=== PATIENT | female | born 1980 | race Caucasian/White ===

== ENCOUNTER 2016-06-18 01:14 | Emergency (ER) | payer OTHER ==
--- NOTE | 2016-06-18 03:21 | ED NURSING NOTES ---
Clinical Report - Nurses [facility] [address] [place] [address] 06/18/2016 1:18 Patient: STEPHANIA TURNER TRIAGE Triage time 0133. Acuity: LEVEL 3. Chief Complaint: INJURY TO LEFT ELBOW. MIKEL COMA SCORE: Mikel Coma Scale: 15- eyes open spontaneously (4); best verbal response- oriented x 4 (5); best motor response- obeys commands (6). --01:40 Jen Rowell R.N. 01:33 06/18/16. BP: 146/98. HR: 97. RR: 20 (unlabored). O2 saturation: 100% on room air. Temp: 98.6 F (temporal). Pain level now: 01/19. --01:40 Jen Rowell R.N. Weight: 58.9 kg stated. Height/Length: 63 inches Per Patient. BMI: 23. --01:32 Jen Rowell R.N. Medications None. --01:38 Jen Rowell R.N. Allergies Penicillins. --01:38 Jen Rowell R.N. Erythromycin. --01:39 Jen Rowell R.N. Ceclor. --01:39 Jen Rowell R.N. Medication/allergy information source: the patient. --01:40 Jen Rowell R.N. History Arrived by private vehicle. Historian: patient. Accompanied by family. Primary physician (none). 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 pt states customer stuck his foot out when she tripped. pt c/o numbness to right 4th and 5th digits. fall occurred around 2330. bruising and swelling noted to right elbow. pt also c/o bilateral knee pain.). Occurred at work. Mechanism of injury: fell. 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 PAST MEDICAL HX: Uses an intrauterine device. SOCIAL HX: Light tobacco smoker (cigarette)- less than 1/2 a pack per day. Occasional alcohol use. No drug use. ABUSE ASSESSMENT: No report of abuse. FALL RISK ASSESSMENT: Fall risk assessment completed. No fall risk identified. NUTRITIONAL RISK ASSESSMENT: The nutritional risk assessment revealed no deficiencies. FUNCTIONAL ASSESSMENT: Functional assessment: no impairments noted. LEARNING NEEDS ASSESSMENT: The learning needs assessment revealed no barriers. SKIN INTEGRITY ASSESSMENT: Skin integrity risk assessment completed. No skin integrity risk identified. --01:40 Jen Rowell R.N. PROBLEMS: no known problems. ADDITIONAL SURGERIES: Adenoidectomy. Tonsillectomy. --01:39 Jen Rowell R.N. Interventions ID band on patient. To waiting room. --01:40 Jen Rowell R.N. PHYSICAL ASSESSMENT Ambulatory to room. GENERAL / NEURO / PSYCH: Oriented X 4. Alert. Appears in pain. EXTREMITIES: Right elbow: swelling and ecchymosis of the area of the posterior elbow. Limited ROM secondary to pain. No injury to the medial elbow. SKIN: Skin intact. Skin is warm and dry. --02:50 Jen Rowell R.N. NURSING PROGRESS NOTES 03:38 06/18/2016 Ibuprofen PO Tablets 600 mg given. Allergies verified and confirmed 5 rights. --03:38 Jen Rowell R.N. 03:39 06/18/2016 Hydrocodone-APAP (Hydrocodone-Acetaminophen) PO 5/325 mg Tablets 1 tab given. Allergies verified, confirmed 5 rights and sedative warning given to the patient. --03:39 Jen Rowell R.N. Sling applied to right arm by pharmacy order entry technician; (0350). --03:55 Nisa Talbert 03:56 06/18/2016 TDAP IM 0.5 mL given. (Lot#: [id number], expiration date: 03/09/2018, Recycling Manager: sanofi pasteur). Given in the left deltoid. Allergies verified and confirmed 5 rights. Vaccine information statement provided to the patient. --03:56 eJn Rowell R.N. DISPOSITION / DISCHARGE Departure time: 355. Condition at departure: unchanged. No learning barriers present. Discharge instructions provided and reviewed with the patient. Reviewed medication(s). Prescription(s) given to the patient (Hydrocodone/APAP, Ibuprofen). Patient verbalized understanding. Written instructions provided in Lithuanian. The patient was discharged by the physician. She was discharged home and accompanied by manager law. She left the Emergency Department ambulatory and via private vehicle. Cut In Station Operator driving. Medication list reviewed and validated with the patient. --04:02 Jen Rowell R.N. 03:56 06/18/16. BP: 131/78. HR: 94. RR: 20 (unlabored). O2 saturation: 98% on room air. Temp: deferred. Pain level now: 12/19. --04:02 Jen Rowell R.N. Locked/Released at 06/18/2016 4:02 by Jen Rowell R.N.
--- NOTE | 2016-06-18 03:21 | ED CLINICAL REPORT ---
Clinical Report - Physicians/Mid Levels [facility] [address] [place] [address] 06/18/2016 1:18 Patient: STEPHANIA TURNER Time Seen: 03:11 Jun 18 2016. Arrived- By private vehicle. Historian- patient. CPT: ER phys charges level 3 (#912167). HISTORY OF PRESENT ILLNESS Chief Complaint: Injury to the left elbow. The injury happened today. Fell. Occurred at work. Patient is experiencing moderate pain. Patient also notes injury to the right lower extremity (knee) and left lower extremity (knee). REVIEW OF SYSTEMS The patient has had swelling. She has had numbness of the right ring finger (mild) and right little finger (mild). No tingling, weakness, suspected foreign body or skin laceration. All systems otherwise negative, except as recorded above. PAST HISTORY See nurses notes. The patient's dominant hand is the right. Problems: no known problems. Medications: None. Allergies: Ceclor. Erythromycin. Penicillins. SOCIAL HISTORY Light tobacco smoker (cigarette)- less than 1/2 a pack per day. Occasional alcohol use. ADDITIONAL NOTES The nursing notes have been reviewed. PHYSICAL EXAM Vital Signs: 06/18/2016 01:33 BP: 146/98. HR: 97. RR: 20. O2 saturation: 100%. Temp: 98.6 F. Pain level now: 8/10. Appearance: Alert. Patient in mild distress. Head: Head atraumatic. Eyes: Eyes normal inspection. ENT: Pharynx normal. Neck: Normal inspection. Neck supple. C-spine non-tender. CVS: Normal heart rate and rhythm. Heart sounds normal. Pulses normal. Respiratory: No respiratory distress. Breath sounds normal. Chest nontender. Abdomen: No visible injury. Soft and nontender. No mass. Back: Normal inspection. No tenderness. ROM normal. Skin: Skin intact. Skin warm. Normal skin color. Extremities: Right elbow: moderate tenderness and swelling, small abrasion and medium sized ecchymosis located in the area of the olecranon. Limited ROM secondary to pain. Neurovascular intact distally. No deformity. No joint effusion. ( Small abrasions with edema both anterior knees. No bone tendrness. Pt ambulatory.). Neuro, Vascular and Tendons: Vascular status intact. Sensation intact. Motor intact. Neuro: Oriented X 3. No motor deficit. No sensory deficit. Reflexes normal. LABS, X-RAYS, AND EKG X-Rays: Left elbow negative. PROGRESS AND PROCEDURES Course of Care: Motrin 600 mg po Vicodin 1 po Tdap given. Patient/family counseled. Disposition: Discharged. Condition: stable. CLINICAL IMPRESSION Contusion to the right elbow and right knee and left knee. Fall on same level by tripping. Single superficial abrasion to the left knee. Right ulnar nerve contusion with paresthesias over the right 4th and 5th fingers.l. INSTRUCTIONS Apply ice for 15-20 minutes three times a day for one days. Wear simple sling until better. Limit use of your right hand until better. Return to work tomorrow when better (wear sling until released.). Warnings: SEDATIVE MEDICATION: You were given sedative medication during your visit. Do not drive or operate dangerous machinery. GENERAL WARNINGS: Return or contact your physician immediately if your condition worsens or changes unexpectedly, if not improving as expected, or if other problems arise. Prescription Medications: Hydrocodone/APAP 5mg/325mg: take 1 to 2 orally every 6 hours as needed for pain. Dispense fifteen (15). No refills. Ibuprofen 600mg tablets: take 1 tablet orally every 8 hours as needed for pain. Dispense thirty (30). No refills. Follow-up: Follow up with your doctor in one week. Call for an appointment. Understanding of the discharge instructions verbalized by patient. (Electronically signed by Tan Urbano MD 06/19/2016 22:27)
--- NOTE | 2016-06-18 03:21 | ED CLINICAL REPORT ---
Clinical Report - Physicians/Mid Levels [facility] [address] [place] [address] 06/18/2016 1:18 Patient: STEPHANIA UTRNER Time Seen: 03:11 Jun 18 2016. Arrived- By private vehicle. Historian- patient. CPT: ER phys charges level 3 (#[id number]). HISTORY OF PRESENT ILLNESS Chief Complaint: Injury to the left elbow. The injury happened today. Fell. Occurred at work. Patient is experiencing moderate pain. Patient also notes injury to the right lower extremity (knee) and left lower extremity (knee). REVIEW OF SYSTEMS The patient has had swelling. She has had numbness of the right ring finger (mild) and right little finger (mild). No tingling, weakness, suspected foreign body or skin laceration. All systems otherwise negative, except as recorded above. PAST HISTORY See nurses notes. The patient's dominant hand is the right. Problems: no known problems. Medications: None. Allergies: Ceclor. Erythromycin. Penicillins. SOCIAL HISTORY Light tobacco smoker (cigarette)- less than 1/2 a pack per day. Occasional alcohol use. ADDITIONAL NOTES The nursing notes have been reviewed. PHYSICAL EXAM Vital Signs: 06/18/2016 01:33 BP: 146/98. HR: 97. RR: 20. O2 saturation: 100%. Temp: 98.6 F. Pain level now: 8/10. Appearance: Alert. Patient in mild distress. Head: Head atraumatic. Eyes: Eyes normal inspection. ENT: Pharynx normal. Neck: Normal inspection. Neck supple. C-spine non-tender. CVS: Normal heart rate and rhythm. Heart sounds normal. Pulses normal. Respiratory: No respiratory distress. Breath sounds normal. Chest nontender. Abdomen: No visible injury. Soft and nontender. No mass. Back: Normal inspection. No tenderness. ROM normal. Skin: Skin intact. Skin warm. Normal skin color. Extremities: Right elbow: moderate tenderness and swelling, small abrasion and medium sized ecchymosis located in the area of the olecranon. Limited ROM secondary to pain. Neurovascular intact distally. No deformity. No joint effusion. ( Small abrasions with edema both anterior knees. No bone tendrness. Pt ambulatory.). Neuro, Vascular and Tendons: Vascular status intact. Sensation intact. Motor intact. Neuro: Oriented X 3. No motor deficit. No sensory deficit. Reflexes normal. LABS, X-RAYS, AND EKG X-Rays: Left elbow negative. PROGRESS AND PROCEDURES Course of Care: Motrin 600 mg po Vicodin 1 po Tdap given. Patient/family counseled. Disposition: Discharged. Condition: stable. CLINICAL IMPRESSION Contusion to the right elbow and right knee and left knee. Fall on same level by tripping. Single superficial abrasion to the left knee. Right ulnar nerve contusion with paresthesias over the right 4th and 5th fingers.l. INSTRUCTIONS Apply ice for 15-20 minutes three times a day for one days. Wear simple sling until better. Limit use of your right hand until better. Return to work tomorrow when better (wear sling until released.). Warnings: SEDATIVE MEDICATION: You were given sedative medication during your visit. Do not drive or operate dangerous machinery. GENERAL WARNINGS: Return or contact your physician immediately if your condition worsens or changes unexpectedly, if not improving as expected, or if other problems arise. Prescription Medications: Hydrocodone/APAP 5mg/325mg: take 1 to 2 orally every 6 hours as needed for pain. Dispense fifteen (15). No refills. Ibuprofen 600mg tablets: take 1 tablet orally every 8 hours as needed for pain. Dispense thirty (30). No refills. Follow-up: Follow up with your doctor in one week. Call for an appointment. Understanding of the discharge instructions verbalized by patient. (Electronically signed by Tan Urbano MD 06/19/2016 22:27)
--- NOTE | 2016-06-18 03:21 | ED NURSING NOTES ---
Clinical Report - Nurses [facility] [address] [place] [address] 06/18/2016 1:18 Patient: STEPHANIA TURNER TRIAGE Triage time 0133. Acuity: LEVEL 3. Chief Complaint: INJURY TO LEFT ELBOW. MIKEL COMA SCORE: Mikel Coma Scale: 15- eyes open spontaneously (4); best verbal response- oriented x 4 (5); best motor response- obeys commands (6). --01:40 Jen Rowell R.N. 01:33 06/18/16. BP: 146/98. HR: 97. RR: 20 (unlabored). O2 saturation: 100% on room air. Temp: 98.6 F (temporal). Pain level now: 01/19. --01:40 Jen Rowell R.N. Weight: 58.9 kg stated. Height/Length: 63 inches Per Patient. BMI: 23. --01:32 Jen Rowell R.N. Medications None. --01:38 Jen Rowell R.N. Allergies Penicillins. --01:38 Jen Rowell R.N. Erythromycin. --01:39 Jen Rowell R.N. Ceclor. --01:39 Jen Rowell R.N. Medication/allergy information source: the patient. --01:40 Jen Rowell R.N. History Arrived by private vehicle. Historian: patient. Accompanied by family. Primary physician (none). 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 pt states customer stuck his foot out when she tripped. pt c/o numbness to right 4th and 5th digits. fall occurred around 2330. bruising and swelling noted to right elbow. pt also c/o bilateral knee pain.). Occurred at work. Mechanism of injury: fell. 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 PAST MEDICAL HX: Uses an intrauterine device. SOCIAL HX: Light tobacco smoker (cigarette)- less than 1/2 a pack per day. Occasional alcohol use. No drug use. ABUSE ASSESSMENT: No report of abuse. FALL RISK ASSESSMENT: Fall risk assessment completed. No fall risk identified. NUTRITIONAL RISK ASSESSMENT: The nutritional risk assessment revealed no deficiencies. FUNCTIONAL ASSESSMENT: Functional assessment: no impairments noted. LEARNING NEEDS ASSESSMENT: The learning needs assessment revealed no barriers. SKIN INTEGRITY ASSESSMENT: Skin integrity risk assessment completed. No skin integrity risk identified. --01:40 Jen Rowell R.N. PROBLEMS: no known problems. ADDITIONAL SURGERIES: Adenoidectomy. Tonsillectomy. --01:39 Jen Rowell R.N. Interventions ID band on patient. To waiting room. --01:40 Jen Rowell R.N. PHYSICAL ASSESSMENT Ambulatory to room. GENERAL / NEURO / PSYCH: Oriented X 4. Alert. Appears in pain. EXTREMITIES: Right elbow: swelling and ecchymosis of the area of the posterior elbow. Limited ROM secondary to pain. No injury to the medial elbow. SKIN: Skin intact. Skin is warm and dry. --02:50 Jen Rowell R.N. NURSING PROGRESS NOTES 03:38 06/18/2016 Ibuprofen PO Tablets 600 mg given. Allergies verified and confirmed 5 rights. --03:38 Jen Rowell R.N. 03:39 06/18/2016 Hydrocodone-APAP (Hydrocodone-Acetaminophen) PO 5/325 mg Tablets 1 tab given. Allergies verified, confirmed 5 rights and sedative warning given to the patient. --03:39 Jen Rowell R.N. Sling applied to right arm by diesel service technician; (0350). --03:55 Nisa Talbert 03:56 06/18/2016 TDAP IM 0.5 mL given. (Lot#: [id number], expiration date: 03/09/2018, Manager Dialysis: sanofi pasteur). Given in the left deltoid. Allergies verified and confirmed 5 rights. Vaccine information statement provided to the patient. --03:56 Jen Rowell R.N. DISPOSITION / DISCHARGE Departure time: 355. Condition at departure: unchanged. No learning barriers present. Discharge instructions provided and reviewed with the patient. Reviewed medication(s). Prescription(s) given to the patient (Hydrocodone/APAP, Ibuprofen). Patient verbalized understanding. Written instructions provided in Mauritanian. The patient was discharged by the physician. She was discharged home and accompanied by ordnance keeper. She left the Emergency Department ambulatory and via private vehicle. Manager Assurance driving. Medication list reviewed and validated with the patient. --04:02 Jen Rowell R.N. 03:56 06/18/16. BP: 131/78. HR: 94. RR: 20 (unlabored). O2 saturation: 98% on room air. Temp: deferred. Pain level now: 12/19. --04:02 Jen Rowell R.N. Locked/Released at 06/18/2016 4:02 by Jen Rowell R.N.
--- NOTE | 2016-06-18 03:21 | ED ORDER SUMMARY ---
..... Patient: STEPHANIA TURNER OrderSheet [facility] VisitID: [id number] [address] [place] [address] 35y, F Registration Date/Time: 06/18/2016 ORDER SHEET Weight: 58.9 kg (stated) Allergies: Penicillins, Erythromycin, Ceclor GENERAL ORDERS: Elbow 3 or 4V Right Urgent (01:41 06/18/2016 HKone R.N. per protocol) (Ack 1:43 Bonilla LOBO Demurrage Worker) (2:07 Ju) Sling - arm (03:18 06/18/2016 Eden FOUNTAIN) (3:54 Mary) MEDICATION ORDERS: Ibuprofen PO 600 mg (NOW) (03:18 06/18/2016 Eden FOUNTAIN) (Ack 3:30 HKone R.N.) (3:38 HKone R.N.) Hydrocodone-APAP PO 5/325 mg (NOW) (03:18 06/18/2016 Eden FOUNTAIN) (Ack 3:30 HKone R.N.) (3:39 HKone R.N.) Tdap IM 0.5 mL (NOW) (03:48 06/18/2016 Eedn FOUNTAIN) (3:56 HKone R.N.) IV FLUIDS: ORDER SHEET NOTES: [Electronically signed by Jen Rowell R.N. (04:02 06/18/2016)] [Electronically signed by Tan Urbano MD (22:27 06/19/2016)] [Electronically locked/signed by Jen Rowell R.N. (04:02 06/18/2016)]
--- NOTE | 2016-06-18 03:21 | ED ORDER SUMMARY ---
..... Patient: STEPHANIA TURNER OrderSheet [facility] VisitID: [id number] [address] [place] [address] 35y, F Registration Date/Time: 06/18/2016 ORDER SHEET Weight: 58.9 kg (stated) Allergies: Penicillins, Erythromycin, Ceclor GENERAL ORDERS: Elbow 3 or 4V Right Urgent (01:41 06/18/2016 HKone R.N. per protocol) (Ack 1:43 Bonilla LOBO Patron Attendant) (2:07 Ju) Sling - arm (03:18 06/18/2016 Eden FOUNTAIN) (3:54 Mary) MEDICATION ORDERS: Ibuprofen PO 600 mg (NOW) (03:18 06/18/2016 Eden FOUNTAIN) (Ack 3:30 HKone R.N.) (3:38 HKone R.N.) Hydrocodone-APAP PO 5/325 mg (NOW) (03:18 06/18/2016 Eden FOUNTAIN) (Ack 3:30 HKone R.N.) (3:39 HKone R.N.) Tdap IM 0.5 mL (NOW) (03:48 06/18/2016 Eden FOUNTAIN) (3:56 HKone R.N.) IV FLUIDS: ORDER SHEET NOTES: [Electronically signed by Jen Rowell R.N. (04:02 06/18/2016)] [Electronically signed by Tan Urbano MD (22:27 06/19/2016)] [Electronically locked/signed by Jen Rowell R.N. (04:02 06/18/2016)]
--- NOTE | 2016-06-18 09:29 | DIAGNOSTIC IMAGING REPORT ---
PROCEDURE: XR ELBOW 3 OR 4 VIEWS - RIGHT INDICATION: TRAUMA/INJURY, initial encounter TECHNIQUE: [place] COMPARISON: None. FINDINGS: Osseous structures, joint spaces, and soft tissues are normal. No evidence of an effusion. IMPRESSION: 1. Normal right elbow.
--- NOTE | 2016-06-19 22:28 | ED MED RECONCILIATION SUMMARY ---
Patient: STEPHANIA TURNER Medication Reconciliation Report [facility] VisitID: [id number] [address] [address] 35y, F Registration Date/Time: 06/18/2016 Weight: 58.9 kg Height/Length: 63 in. BMI: 23.0 ALLERGIES: Ceclor, Erythromycin, Penicillins The patient's Home Medications are listed below: NONE. The source(s) of the original Home Medication information: patient The following Medications were given to the patient in the Emergency Department: Ibuprofen [PO] PO 600 mg, administered: 06/18/2016 3:38:00 AM Hydrocodone-APAP [PO] PO 1 tab, administered: 06/18/2016 3:39:00 AM TDAP [IM] IM 0.5 mL, administered: 06/18/2016 3:56:00 AM The following Medications were prescribed to the patient: Hydrocodone/APAP 5mg/325mg: take 1 to 2 orally every 6 hours as needed for pain. Dispense fifteen (15). No refills. -- Tan Urbano MD Ibuprofen 600mg tablets: take 1 tablet orally every 8 hours as needed for pain. Dispense thirty (30). No refills. -- Tan Urbano MD
--- NOTE | 2016-06-19 22:28 | ED DISCHARGE INSTRUCTIONS ---
Patient: STEPHANIA TURNER General Instructions [facility] VisitID: [id number] [place] [address] 35y, F Registration Date/Time: 06/18/2016 Contusion to the right elbow and right knee and left knee. Fall on same level by tripping. Single superficial abrasion to the left knee. Right ulnar nerve contusion with paresthesias over the right 4th and 5th fingers.l. INSTRUCTIONS Apply ice for 15-20 minutes three times a day for one days. Wear simple sling until better. Limit use of your right hand until better. Return to work tomorrow when better (wear sling until released.). Warnings: SEDATIVE MEDICATION: You were given sedative medication during your visit. Do not drive or operate dangerous machinery. GENERAL WARNINGS: Return or contact your physician immediately if your condition worsens or changes unexpectedly, if not improving as expected, or if other problems arise. Prescription Medications: Hydrocodone/APAP 5mg/325mg: take 1 to 2 orally every 6 hours as needed for pain. Dispense fifteen (15). No refills. Ibuprofen 600mg tablets: take 1 tablet orally every 8 hours as needed for pain. Dispense thirty (30). No refills. Follow-up: Follow up with your doctor in one week. Call for an appointment. Understanding of the discharge instructions verbalized by patient. ADDITIONAL INFORMATION Mechanical Fall You have had a fall today. It appears that the cause is mechanical. That means that you slipped, tripped or lost your balance. If your fall had been due to fainting or a seizure, further tests would be required. Home Care: Rest today and resume your normal activities when you are feeling back to normal. If you were injured during the fall, follow the advice from your doctor regarding care of your injury. You may use acetaminophen (Tylenol) or ibuprofen (Motrin, Advil) to control pain, unless another pain medicine was prescribed. [NOTE: If you have chronic liver or kidney disease or ever had a stomach ulcer or GI bleeding, talk with your doctor before using these medicines.] Fall Prevention: Was there anything that caused your fall that can be fixed, removed, or replaced? Make your home safe by keeping walkways clear of objects you may trip over. Use non-slip pads under rugs. Do not walk in poorly lit areas. Do not stand on chairs or wobbly ladders. Use caution when reaching overhead or looking upward. This position can cause a loss of balance. Be sure your shoes fit properly, have non-slip bottoms and are in good condition. Be cautious when going up and down curbs, and walking on uneven sidewalks. If your balance is poor, consider using a cane or walker. Stay as active as you can. Balance, flexibility, strength, and endurance all come from exercise. They all play a role in preventing falls. Follow Up with your doctor or as advised by our staff. Get Prompt Medical Attention if any of the following occur: Repeated mechanical falls, or unexplained falls Dizziness, fainting or seizure Severe headache Chest pain or shortness of breath Palpitations (very rapid or very slow or irregular heartbeat) Blood in vomit, stools (black or red color) Weakness of an arm or leg or one side of the face Difficulty with speech or vision Abrasions Abrasions are skin scrapes. Their treatment depends on how large and deep the abrasion is. Home Care: If you were given a bandage, change it once a day. If your bandage sticks to the wound, soak it in warm water until it loosens. Wash the area with soap and water to remove all the cream/ointment. You may do this in a sink, under a tub faucet or shower. Rinse off the soap and pat dry with a clean towel. Reapply cream/ointment according to your doctor's instructions. This will prevent infection and help prevent the bandage from sticking. Cover the wound with a fresh non-stick bandage (Telfa). Repeat steps 1 to 4 daily, or as directed by your doctor. If the bandage becomes wet or dirty, change it as soon as possible. You may use acetaminophen (Tylenol) or ibuprofen (Motrin, Advil) to control pain, unless another pain medicine was prescribed. [ NOTE : If you have chronic liver or kidney disease or ever had a stomach ulcer or GI bleeding, talk with your doctor before using these medicines.] Do not use ibuprofen in children under six months of age. Follow Up with your physician or this facility as directed by our staff. Most skin wounds heal within ten days. However, an infection may occur despite proper treatment. Therefore, look for the early signs of infection listed below. Get Prompt Medical Attention if any of the following occur: Increasing pain in the wound Increasing redness or swelling Pus coming from the wound Fever of 100.4F (38C) or higher, or as directed by your healthcare provider Contusion,Soft Tissue You have a CONTUSION, which is a bruise with swelling and some bleeding under the skin. There are no broken bones. This injury takes a few days to a few weeks to heal. Home Care: 1) Keep the injured part elevated to reduce pain and swelling. This is especially important during the first 48 hours. 2) Make an ice pack (ice cubes in a plastic bag, wrapped in a towel) and apply for 20 minutes every 1-2 hours the first day. Continue this 3-4 times a day until the pain and swelling goes away. 3) You may use acetaminophen (Tylenol) or ibuprofen (Motrin, Advil) to control pain, unless another pain medicine was prescribed. [ NOTE : If you have chronic liver or kidney disease or ever had a stomach ulcer or GI bleeding, talk with your doctor before using these medicines.] Follow Up with your doctor or this facility if you are not improving within the next THREE days. [NOTE: If X-rays were taken, they will be reviewed by a radiologist. You will be notified of any new findings that may affect your care.] Get Prompt Medical Attention if any of the following occur: -- Pain or swelling increases -- Injured arm or leg becomes cold, blue, numb or tingly -- Redness, warmth or drainage from the skin Sling A sling is designed to support your arm in a position of rest. It is used for injuries of the hand, forearm, upper arm, and shoulder. A shoulder that is immobilized too long can become stiff and lose range of motion. Follow up with your doctor as advised and do not use the sling longer than directed. Home Use: Leave the sling in place as long as directed by your doctor. Unless told otherwise, you may remove it when bathing, dressing, and when you go to sleep. The sling is adjustable. If it becomes loose, adjust it so that your forearm is horizontal (level with the ground). Your hand should be level with the elbow. You have been given the following additional information: Fall, Mechanical Abrasion Contusion, Soft Tissue Sling Limit use of your right hand until better. Return to work tomorrow when better (wear sling until released.). (Electronically signed by Tan Urbano MD 06/19/2016 22:27)
--- NOTE | 2016-06-19 22:28 | ED MAR SUMMARY ---
..... Medication Administration Record [facility] [address] [place] [address] Patient: STEPHANIA TURNER Visit ID: [id number] 35y, F Weight: 58.9 kg Height/Length: 63 in BMI: 23 ALLERGIES: Ceclor, Erythromycin, Penicillins Given 03:38 06/18/2016 Jen Rowell RAletaNAleta Medication Administered: IBUPROFEN [PO], Dose: 600 mg Tablets PO. Medication Ordered: Ibuprofen PO 600 mg (NOW). Given 03:39 06/18/2016 Jen Rowell, RAletaN. Medication Administered: HYDROCODONE-APAP [PO] (HYDROCODONE-ACETAMINOPHEN), Dose: 1 tab 5/325 mg Tablets PO. Medication Ordered: Hydrocodone-APAP PO 5/325 mg (NOW). Given 03:56 06/18/2016 Jen Rowell, R.N. Medication Administered: TDAP [IM], Dose: 0.5 mL IM. Medication Ordered: Tdap IM 0.5 mL (NOW).
--- NOTE | 2016-06-19 22:28 | ED MED RECONCILIATION SUMMARY ---
Patient: STEPHANIA TURNER Medication Reconciliation Report [facility] VisitID: [id number] [place] [address] 35y, F Registration Date/Time: 06/18/2016 Weight: 58.9 kg Height/Length: 63 in. BMI: 23.0 ALLERGIES: Ceclor, Erythromycin, Penicillins The patient's Home Medications are listed below: NONE. The source(s) of the original Home Medication information: patient The following Medications were given to the patient in the Emergency Department: Ibuprofen [PO] PO 600 mg, administered: 06/18/2016 3:38:00 AM Hydrocodone-APAP [PO] PO 1 tab, administered: 06/18/2016 3:39:00 AM TDAP [IM] IM 0.5 mL, administered: 06/18/2016 3:56:00 AM The following Medications were prescribed to the patient: Hydrocodone/APAP 5mg/325mg: take 1 to 2 orally every 6 hours as needed for pain. Dispense fifteen (15). No refills. -- Tan Urbano MD Ibuprofen 600mg tablets: take 1 tablet orally every 8 hours as needed for pain. Dispense thirty (30). No refills. -- Tan Urbano MD
--- NOTE | 2016-06-19 22:28 | ED MAR SUMMARY ---
..... Medication Administration Record [facility] [address] [place] [address] Patient: STEPHANIA TURNER Visit ID: [id number] 35y, F Weight: 58.9 kg Height/Length: 63 in BMI: 23 ALLERGIES: Ceclor, Erythromycin, Penicillins Given 03:38 06/18/2016 Jen Rowell RAletaNAleta Medication Administered: IBUPROFEN [PO], Dose: 600 mg Tablets PO. Medication Ordered: Ibuprofen PO 600 mg (NOW). Given 03:39 06/18/2016 Jen Rowell, RAletaN. Medication Administered: HYDROCODONE-APAP [PO] (HYDROCODONE-ACETAMINOPHEN), Dose: 1 tab 5/325 mg Tablets PO. Medication Ordered: Hydrocodone-APAP PO 5/325 mg (NOW). Given 03:56 06/18/2016 Jen Rowell, R.N. Medication Administered: TDAP [IM], Dose: 0.5 mL IM. Medication Ordered: Tdap IM 0.5 mL (NOW).
== END 2016-06-18 03:56 | disposition home or self-care (01) ==
LOC: ED SRH 01:14
DX: S50.01XA Contusion of right elbow, initial encounter (principal); S80.01XA Contusion of right knee, initial encounter; S80.02XA Contusion of left knee, initial encounter; S64.01XA Injury of ulnar nerve at wrist and hand level of right arm, initial encounter; S80.212A Abrasion, left knee, initial encounter; R20.2 Paresthesia of skin; W01.0XXA Fall on same level from slipping, tripping and stumbling without subsequent striking against object, initial encounter; Y93.89 Activity, other specified; Y92.69 Other specified industrial and construction area as the place of occurrence of the external cause; Y99.8 Other external cause status